=== PATIENT | male | born 1955 | race Caucasian/White ===

== ENCOUNTER 2017-05-07 08:03 | Day surgery (SDC) | payer BC ==
[2017-01-10 15:15] VITALS: BMI 29.9
[~2017-05-07 08:03] MED LIST: LACTATED RINGERS 1,000 ML IV SCH; LIDOCAINE 1% 20 ML VIAL (10MG/ML) FOR IV START INTRADERMA PRN
[2017-05-07 08:18] LABS: Glucose,Whole Blood 154 mg/dL (75-99)
[2017-05-07 08:22] VITALS: RESP 16
[2017-05-07] MEDS ORDERED: PROPOFOL 10 MG/ML 20 ML VIAL IV ONE (08:46)
--- NOTE | 2017-05-07 09:01 | P.GSHP ---
History of Present Illness H&P Date: 05/07/17 Chief Complaint: Screening colonoscopy 's is a 61-year-old male who presents today for screening colonoscopy. Patient denies a significant GI complaints. - Constitutional Constitutional: Reports as per HPI Past Medical History Past Medical History: Diabetes Mellitus, Hyperlipidemia, Hypertension, Osteoarthritis (OA), Thyroid Disorder Additional Past Medical History / Comment(s): HX OF HYPERACTIVE THYROID WITH RADIATION [place]., History of Any Multi-Drug Resistant Organisms: None Reported Additional Past Surgical History / Comment(s): TEMPORARY TRACHEOSTOMY A CHILD AFTER CHOKING Past Anesthesia/Blood Transfusion Reactions: No Reported Reaction Additional Past Anesthesia/Blood Transfusion Reaction / Comment(s): ONLY ANESTHESIA WAS A CHILD Smoking Status: Former smoker - Past Family History Father Family Medical History: Cancer, Deep Vein Thrombosis (DVT) Additional Family Medical History / Comment(s): BLADDER CANCER Medications and Allergies Home Medications Medication Instructions Recorded Confirmed Type Canagliflozin [Invokana] 100 mg PO DAILY 07/21/16 05/07/17 History Levothyroxine Sodium [Synthroid] 112 mcg PO QAM 07/21/16 05/07/17 History Lisinopril [Zestril] 20 mg PO HS 07/21/16 05/07/17 History Simvastatin [Zocor] 20 mg PO HS 07/21/16 05/07/17 History Allergies Allergy/AdvReac Type Severity Reaction Status Date / Time Sulfa (Sulfonamide Allergy Unknown Itching, Verified 05/02/17 13:30 Antibiotics) [place] like skin was on fire Surgical - Exam Vital Signs Temp Pulse Resp BP Pulse Ox 97. F L 82 16 121/84 96 05/07/17 08:20 05/07/17 08:20 05/07/17 08:20 05/07/17 08:20 05/07/17 08:20 - General well developed, no distress - Eyes PERRL - ENT normal pinna - Neck no masses - Respiratory normal expansion - Cardiovascular Rhythm: regular - Abdomen Abdomen: soft, non tender Results - Labs Abnormal Lab Results - Last 24 Hours (Table) 05/07/17 Range/Units 08:14 POC Glucose (mg/dL) 154 H (75-99) mg/dL Assessment and Plan Plan: We'll perform screening colonoscopy.
--- NOTE | 2017-05-07 09:12 | P.OP ---
Date of Procedure: 05/07/17 Preoperative Diagnosis: Screening colonoscopy Postoperative Diagnosis: Diverticulosis Procedure(s) Performed: Colonoscopy Implants: Anesthesia: MAC Surgeon: Jim Warren Pathology: other Condition: stable Disposition: PACU Indications for Procedure: Operative Findings: Description of Procedure: The patient's placed on the endoscopy table in the lateral position. He received IV sedation. Digital rectal exam was performed which revealed no abnormalities. The prostate was symmetric without nodules. The flexible colonoscope was then placed patient anus passed throughout the entire colon. The ileocecal valve visualized. The cecum, ascending and transverse colon appeared normal. In the descending and sigmoid was mild diverticular changes. Liver back the rectum this appeared normal. Scope was withdrawn for patient.
[2017-05-07 09:39] VITALS: BP 103/71; PULSE 74
[2017-05-07 09:45] LABS: Glucose,Whole Blood 142 mg/dL (75-99)
== END 2017-05-07 10:05 | disposition home or self-care (01) ==
LOC: ORWHC2ENDO 08:03
PROVIDERS: ATTEND Surgery
DX: Z12.11 Encounter for screening for malignant neoplasm of colon (principal); K57.30 Diverticulosis of large intestine without perforation or abscess without bleeding; Z87.891 Personal history of nicotine dependence; E11.9 Type 2 diabetes mellitus without complications; Z79.84 Long term (current) use of oral hypoglycemic drugs; E78.5 Hyperlipidemia, unspecified; I10 Essential (primary) hypertension; E05.90 Thyrotoxicosis, unspecified without thyrotoxic crisis or storm; Z79.899 Other long term (current) drug therapy; Z88.2 Allergy status to sulfonamides
CPT/HCPCS: J2704; G0121; 45378

== ENCOUNTER → 2018-12-13 | Outpatient (CLI) | payer BC ==
--- NOTE | 2018-12-13 16:52 | CT ---
EXAMINATION TYPE: CT sinus wo con DATE OF EXAM: 12/13/2018 COMPARISON: Chronic sinus infections HISTORY: chronic sinus congestion/infections. CT DLP: 171 mGycm. Automated Exposure Control for Dose Reduction was Utilized. TECHNIQUE: CT scan of the sinuses is performed without contrast, axial images are obtained, coronal r eformatted images are also reviewed. FINDINGS: There are changes of chronic sinusitis involving the maxillary sinuses compatible with mild to moderate chronic sinusitis. Very mild changes seen involving the ethmoid air cells greater on the left. Frontal sinus has a normal appearance. Sphenoid sinus has a normal appearance. There is a nasal septal deviation. Mastoid air cells are clear. Oropharynx and nasopharynx symmetric. Intraorbital structures symmetric. Intracranial structures symm etric. There is narrowing of the left ostiomeatal complex. Right ostiomeatal complex is patent. IMPRESSION: 1. Moderate chronic maxillary sinusitis with narrowing of the left ostiomeatal complex. 2. Mild ethmoidal chronic sinusitis.
== END | disposition home or self-care (01) ==
LOC: RADCTMAIN 15:46
PROVIDERS: ATTEND Nurse Practitioner Family
DX: J32.8 Other chronic sinusitis (principal); J34.89 Other specified disorders of nose and nasal sinuses
CPT/HCPCS: 70486

== ENCOUNTER → 2020-11-12 | Outpatient (CLI) | payer BC ==
--- NOTE | 2020-11-12 11:57 | CT ---
EXAMINATION TYPE: CT abdomen pelvis wo con DATE OF EXAM: 11/12/2020 HISTORY: Abdominal pain, stomach issues for [address] DLP: 808.50 mGycm. Automated Exposure Control for Dose Reduction was Utilized. TECHNIQUE: CT scan of the abdomen and pelvis is performed without oral or IV contrast. COMPARISON: NONE FINDINGS: Within the limitations of a non-contrast study, the following observations are made. LUNG BASES: Three-vessel Coronary artery calcification. LIVER/GB: Visualized liver is heterogeneously hypodense suggesting mild diffuse fatty infiltration. PANCREAS:. Scattered punctate annular Calcifications throughout the pancreas which is slightly hetero geneous in appearance without ductal dilatation. No surrounding inflammatory change. Suspect product of chronic pancreatitis. SPLEEN: No significant abnormality is seen. ADRENALS: No significant abnormality is seen. KIDNEYS: No renal stones or hydronephrosis is seen bilaterally. BOWEL: Diverticula in the left and sigmoid colon. No CT evidence for acute diverticulitis. Stomach po flora distended and is thus suboptimally evaluated. No suspicious small or large bowel dilatation. Nor mal appearing appendix from cecum. GENITAL ORGANS: No gross abnormality seen. LYMPH NODES: No greater than 1cm abdominal or pelvic lymph nodes are appreciated. OSSEOUS STRUCTURES: No significant abnormality is seen. OTHER: Mild/moderate calcified plaque of the aorta extends into branch vessels. Moderate multilevel s purring in the thoracolumbar spine. IMPRESSION: No acute findings identified on noncontrast CT. Distal colonic diverticulosis greatest in the sigmoid colon without convincing CT evidence for acute diverticulitis currently.
== END | disposition home or self-care (01) ==
LOC: RADCTMAIN 09:51
PROVIDERS: ATTEND Family Medicine
DX: K57.30 Diverticulosis of large intestine without perforation or abscess without bleeding (principal)
CPT/HCPCS: 74176

== ENCOUNTER → 2020-12-09 | Outpatient (CLI) | payer BC ==
[~2020-12-09] MED LIST changes: -LACTATED RINGERS 1,000 ML IV SCH; -LIDOCAINE 1% 20 ML VIAL (10MG/ML) FOR IV START INTRADERMA PRN; +REGADENOSON 0.4 MG/5 ML SYRINGE IV ONE
--- NOTE | 2020-12-09 10:41 | US ---
EXAMINATION TYPE: US carotid duplex BILAT DATE OF EXAM: 12/09/2020 COMPARISON: NONE CLINICAL HISTORY: R06.09 DYSPNEA. EXAM MEASUREMENTS: RIGHT: Peak Systolic Velocity (PSV) cm/sec ----- Right CCA: 64.9 ----- Right ICA: 83.9 ----- Right ECA: 77.8 ICA/CCA ratio: 1.3 RIGHT: End Diastole cm/sec ----- Right CCA: 26.1 ----- Right ICA: 24.2 ----- Right ECA: 13.9 LEFT: Peak Systolic Velocity (PSV) cm/sec ----- Left CCA: 84.6 ----- Left ICA: 90.2 ----- Left ECA: 57.3 ICA/CCA ratio: 1.1 LEFT: End Diastole cm/sec ----- Left CCA: 29.8 ----- Left ICA: 47.4 ----- Left ECA: 15.4 VERTEBRALS (direction of flow): Right Vertebral: Antegrade Left Vertebral: Antegrade Rhythm: Normal The morse scale images show no significant plaque bilateral carotid bulbs. Velocity measurements and r atios remain within normal limits bilaterally. IMPRESSION: No hemodynamically significant stenosis involving either internal carotid artery . Criteria for Assigning % of Stenosis / Diameter reduction (Estimation based on the indirect measurements of the internal carotid artery velocities (ICA PSV). 1. Normal (no stenosis)=ICA PSV < 125 cm/s: ratio < 2.0: ICA EDV<40 cm/s. 2. Less than 50% stenosis=ICA PSV < 125 cm/s: ratio < 2.0: ICA EDV<40 cm/s. 3. 50 to 69% stenosis=ICA PSV of 125 to 230 cm/s: ration 2.0 ? 4.0: ICA EDV 40-100 cm/s. 4. Greater than 70% stenosis to near occlusion= ICA PSV > 230 cm/s: ratio > 4.0: ICA EDV > 100 cm/s. 5. Near occlusion= ICA PSV velocities may be low or undetectable: variable ratio and ICA EDV. 6. Total occlusion=unable to detect flow.
--- NOTE | 2020-12-09 10:43 | ECHOF ---
Referral Reason:I25.20 Atherosclerotic heart disease of [place] MEASUREMENTS -------- HEIGHT: 170.2 cm WEIGHT: 91.6 kg BP: IVSd: 1.4 cm (0.6 - 1.1) LVIDd: 3.5 cm (3.9 - 5.3) LVPWd: 1.5 cm (0.6 - 1.1) IVSs: 1.6 cm LVIDs: 1.8 cm LVPWs: 2.2 cm Ao Diam: 3.3 cm (2.0 - 3.7) AV Cusp: 2.5 cm (1.5 - 2.6) LA Diam: 3.1 cm (2.7 - 3.8) MV EXCURSION: 18.438 mm (> 18.000) MV EF SLOPE: 137 mm/s (70 - 150) EPSS: 2.7 cm MV E Maximiliano: 0.84 m/s MV DecT: 212 ms MV A Maximiliano: 0.87 m/s MV E/A Ratio: 0.97 RAP: 5.00 mmHg RVSP: 11.51 mmHg FINDINGS -------- This was a technically difficult study with suboptimal views. The left ventricular size is normal. There is moderate concentric left ventricular hypertrophy. O verall left ventricular systolic function is normal with, an EF between 55 - 60 %. The right ventricle is normal in size. The left atrial size is normal. The right atrial size is normal. Lumason used The aortic valve is trileaflet and appears structurally normal. The mitral valve is normal. There is trace mitral regurgitation. The tricuspid valve appears structurally normal. Trace tricuspid regurgitation present. Right eddie tricular systolic pressure is normal at < 35 mmHg. There is no pulmonic regurgitation present. The aortic root size is normal. IVC Not well visulized. There is no pericardial effusion. CONCLUSIONS -------- 1. The left ventricular size is normal. 2. There is moderate concentric left ventricular hypertrophy. 3. Overall left ventricular systolic function is normal with, an EF between 55 - 60 %. 4. There is trace mitral regurgitation. 5. Trace tricuspid regurgitation present. 6. There is no pericardial effusion. BATON TEACHER: Amelia Caban RD
--- NOTE | 2020-12-09 14:18 | EST ---
EXERCISE STRESS AGE: 65 SEX: Male HT: 5'8" WT: 202 lbs. PROTOCOL: Lexiscan STAGE: N/A DURATION OF EXERCISE: N/A HEART RATE REST: 57 BLOOD PRESSURE REST: 123/71 MAXIMUM HEART RATE ACHIEVED: 81 MAXIMUM BLOOD PRESSURE: 123/71 85% MPHR: 130 100% MPHR: 153 METS: N/A INDICATIONS: To evaluate for coronary artery disease in a patient with risk factors. CLINICAL INFORMATION: Baseline EKG shows sinus rhythm, normal axis, normal intervals. Patient was given intravenous Lexiscan as per protocol. Did not have chest pain or diagnostic ST-segment depression. CONCLUSIONS: 1. Negative stress test by EKG criteria. 2. Cardiolite portion of the stress test will be reported separately. MMODL / IJN: [id number] /
--- NOTE | 2020-12-10 07:25 | NM ---
EXAMINATION TYPE: NM stress lexiscan cardiolite DATE OF EXAM: 12/09/2020 COMPARISON: NONE HISTORY: Atherosclerotic heart disease. History of hypertension, hypercholesterolemia, tobacco use in the past, and diabetes. TECHNIQUE: After the intravenous administration of 9.8 mCi Tc 99m Sestamibi - Cardiolite resting SPE CT images acquired 45 minutes post injection. The patient received 0.4mg Lexiscan, 26.2 mCi Tc 99m Sestamibi - Stress images obtained [address] injection FINDINGS: Review of stress and rest SPECT images demonstrates no distinct perfusion abnormality. Gated analysi s shows normal wall motion with an estimated left ventricular ejection fraction of 62 %. IMPRESSION: No scintigraphic evidence for reversible ischemia.
== END | disposition home or self-care (01) ==
LOC: RADNMMAIN 07:48
PROVIDERS: ATTEND Family Medicine
DX: I08.1 Rheumatic disorders of both mitral and tricuspid valves (principal); R06.09 Other forms of dyspnea; I25.10 Atherosclerotic heart disease of native coronary artery without angina pectoris
CPT/HCPCS: 93017; 93306; 93880; J2785; Q9950; 78452

== ENCOUNTER 2023-02-14 06:49 | Day surgery (SDC) | payer BC ==
[~2023-02-14 06:49] MED LIST changes: +ACETAMINOPHEN TAB 500 MG TAB PO PRN; +DEXAMETHASONE SOD PHOSPHATE 4 MG/ML 1 ML VIAL IV ONE; +HEPARIN SODIUM,PORCINE/PF 5,000 UNIT/0.5 ML SYRINGE SQ PRN; +LACTATED RINGERS 1,000 ML IV SCH; +LIDOCAINE 1% (10MG/ML) FOR IV START INTRADERMA PRN; +MIDAZOLAM 2 MG/2 ML VIAL IV PRN; +ONDANSETRON 4 MG/2 ML VIAL IVP ONE; +Pre Op ABX Message 1 EACH MISC MISCELLANE ONE; -REGADENOSON 0.4 MG/5 ML SYRINGE IV ONE
[2023-02-14] MEDS ORDERED: HYDROmorphone 0.5 MG/0.5 ML SYRINGE IVP PRN (07:00)
[2023-02-14] MEDS ORDERED: ONDANSETRON 4 MG/2 ML VIAL ONE (07:22)
[2023-02-14 07:33] LABS: Glucose,Whole Blood 168 mg/dL (70-110)
[2023-02-14] MEDS ORDERED: MIDAZOLAM 2 MG/2 ML VIAL IVP ONE (07:37)
[2023-02-14 07:44] LABS: Basophils % (A) 0 %; Eosinophils # (A) 0.2 k/uL (0-0.7); Eosinophils % (A) 2 %; HGB 14.9 gm/dL (13.0-17.5); Lymphocytes # (A) 1.7 k/uL (1.0-4.8); Lymphocytes % (A) 21 %; MCHC 33.8 g/dL (31.0-37.0); MCV 94.7 fL (80.0-100.0); Mean Platelet Volume 7.8; Monocytes # (A) 0.5 k/uL (0-1.0); Monocytes % (A) 6 %; Neutrophils # (A) 5.4 k/uL (1.3-7.7); Neutrophils % (A) 68 %; Platelet Count 305 k/uL (150-450); RBC 4.65 m/uL (4.30-5.90); RDW 13.2 % (11.5-15.5)
[2023-02-14] MEDS ORDERED: LIDOCAINE 2% INJ 20 MG/ML (2 ML VIAL) ONE (07:58)
[2023-02-14] MEDS ORDERED: ePHEDrine 50 MG/ML 1 ML VIAL ONE (07:58)
[2023-02-14] MEDS ORDERED: fentaNYL (PF) 50 MCG/ML 2 ML AMP ONE (07:58)
[2023-02-14] MEDS ORDERED: KETOROLAC 15 MG/ML 1 ML VIAL ONE (07:58)
[2023-02-14] MEDS ORDERED: ceFAZolin 1,000 MG VIAL ONE (07:58)
[2023-02-14] MEDS ORDERED: PHENYLEPHRINE-0.9% NACL SYG 1,000 MCG/10 ML SYRINGE ONE (07:58)
[2023-02-14] MEDS ORDERED: MIDAZOLAM 2 MG/2 ML VIAL ONE (07:58)
[2023-02-14] MEDS ORDERED: PROPOFOL 10 MG/ML 20 ML VIAL IV ONE (07:58)
[2023-02-14] MEDS ORDERED: SUCCINYLCHOLINE CHLORIDE 200 MG/10 ML VIAL IV ONE (07:58)
[2023-02-14] MEDS ORDERED: SODIUM CHLORIDE 0.9% 100 ML BAG ONE (07:58)
[2023-02-14 08:00] LABS: ALT 28 U/L (4-49); AST 25 U/L (17-59); African American GFR (CKD) >90 (>60 ml/min/1.73 sqM); Albumin 4.7 g/dL (3.5-5.0); Alkaline Phosphatase 97 U/L (38-126); Anion Gap 10 mmol/L; Blood Urea Nitrogen 21 mg/dL (9-20); Carbon Dioxide 24 mmol/L (22-30); Chloride 102 mmol/L (98-107); Glucose 187 mg/dL (74-99); Non-African American GFR(CKD) >90 (>60 ml/min/1.73 sqM); Potassium 4.8 mmol/L (3.5-5.1); Sodium 136 mmol/L (137-145); Total Bilirubin 0.4 mg/dL (0.2-1.3); Total Protein 8.5 g/dL (6.3-8.2)
[2023-02-14] MEDS ORDERED: SODIUM CHLORIDE 0.9% 50 ML with ceFAZolin 2,000 MG IV ONE ×2 (08:03)
[2023-02-14] MEDS ORDERED: BUPIVACAIN-EPI 0.25%-1:200,000 30 ML VIAL SQ ONE ×2 (08:31→08:37)
--- NOTE | 2023-02-14 09:09 | P.OP ---
Preoperative Diagnosis: Infected sebaceous cyst with evidence of chronic inflammation and draining sinus Postoperative Diagnosis: Same Procedure(s) Performed: Excision of sebaceous cyst Anesthesia: DAMIEN Surgeon: Jim Warren Pathology: other (Sebaceous cyst/chronically inflamed skin) Condition: stable Disposition: PACU Operative Findings: Chronic inflammation with significant scarring around sebaceous cyst and evidence of infection Description of Procedure: The patient's placed on the operative table in the supine position. He received general endotracheal anesthesia. His neck was prepped and draped in sterile fashion. Patient had a enlarged chronically infected sebaceous cyst which was on the posterior left neck. This measured approximately 10 cm diameter. There was a chronic draining sinus from the cyst. There is evidence of a smaller cyst present 2 cm diameter next to the sebaceous cyst. The area was prepped and draped usual sterile fashion. The smaller cyst was incised first. Using blunt and sharp dissection with cautery the cyst was excised and pathology. There is evidence of infection. Due to the evidence of infection the wound was packed open. Sterile dressing was applied within the wound for packing. Next the larger chronically infected sebaceous cyst was incised. There is significant inflammatory reaction around the cyst. The tissue was very hard. These skin had been incised and using left cautery the skin hemostasis was achieved. Then using blunt and sharp dissection the area infected cyst was removed. The chronically infected skin was removed sent to pathology. Hemostasis. Several small bleeding points were coagulated with left cautery. Due to the risk of infection the wound was left open. The wound was packed with sterile gauze. Patient tolerated procedure well was sent to recovery room stable condition.
[2023-02-14 09:22] VITALS: TEMP 97
[2023-02-14 11:19] VITALS: RESP 20
[2023-02-14 11:21] VITALS: BP 110/70; PULSE 78
== END 2023-02-14 11:15 | disposition home health service (06) ==
LOC: OR 06:49
PROVIDERS: ATTEND Surgery
DX: L72.3 Sebaceous cyst (principal); L72.0 Epidermal cyst; I10 Essential (primary) hypertension; E78.5 Hyperlipidemia, unspecified; E11.9 Type 2 diabetes mellitus without complications; E07.9 Disorder of thyroid, unspecified; Z98.890 Other specified postprocedural states; Z88.2 Allergy status to sulfonamides; Z79.899 Other long term (current) drug therapy
CPT/HCPCS: 11426; 88304; 80053; 85025; J2250; J0330; J1100; J2405; J0690; J3010; J1885; J2370; J2704; J1644; J2001